=== PATIENT | female | born 1990 | race Two or more races ===

== ENCOUNTER 2018-08-12 15:11 | Emergency (ER) | payer OTHER ==
[~2018-08-12] VITALS: Ht 157.5 cm; Wt 78.9 kg
[2018-08-12] MEDS ORDERED: GABAPENTIN600 MG (15:47)
[2018-08-12] MEDS ORDERED: GENVOYA TABLET1 EACH (15:47)
[2018-08-12] MEDS ORDERED: PREZISTA800 MG (15:47)
[2018-08-12] MEDS ORDERED: LITHOBID300 MG (15:48)
[2018-08-12] MEDS ORDERED: B-125000 MC1 (15:48)
== END 2018-08-12 21:46 | disposition home or self-care (01) ==
LOC: ER 15:11
DX: B34.9 Viral infection, unspecified (principal)